=== PATIENT | female | born 1995 | race Caucasian/White ===

== ENCOUNTER 2016-09-15 14:52 | Emergency (ER) | payer MEDICAID ==
[~2016-09-15] VITALS: Ht 162.6 cm; Wt 77.1 kg
[~2016-09-15 14:52] MED LIST: ETODOLAC400 MG PO; FIORICET1 CAP PO; KEFLEX 500MG.500 MG PO; MEDROL 4MG. DOSE4 MG PO; NICOTINE T21 MG/24 H TD; PERCOCET 5/3251 EACH PO; PRENATAL1 TA2 PO; VICODIN1 TAB PO; VISTARIL50 MG PO
--- NOTE | 2016-09-15 15:20 | Emergency Room Report ---
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 N Clinical Suspician of Infection? N Mental Status: 1 - Regular (Normal Baseline) Sepsis Risk:Possible Sepsis Risk Have you (or family members/close friends) recently traveled outside the [place]? N If Yes, where/when: Have you had exposure to infectious disease within the past month? N TB? Other? Specify: Source patient, RN notes reviewed, family, RN/MD Exam Limitations no limitations Comment This is a 21-year-old female presenting to the emergency room with RIGHT hand pain following an injury today to her RIGHT fifth finger. Patient was here few days ago with another hand injury, after punching a wall and she was diagnosed with a right 5th metacarpal fracture. Today's injuries subsequent to the fracture she has sustained a few days ago. ALLERGIES Coded Allergies: tramadol (From ULTRA) (Mild, I-HIVES 09/01/16) Home Medications Active Scripts CEPHALEXIN (Keflex 500MG Capsule) 500 MG PO Q8H #30 CAP Prov: 09/02/16 HYDROCODONE/ACETAMINOPHEN (Vicodin 5-300 MG Tablet) 1 TAB PO TIDP PRN BREAKTHROUGH MODERATE PAIN #10 TAB Prov: 09/06/16 History Medical History General CAD? No Angina: No IN: No Hypertension? No Hyperlipidemia? No CHF? No DVT? No PE? No COPD? No Asthma? No Anemia? No GERD? No Gastric ulcers? No GI Bleed? No Hernia? No Thyroid Problems? No Hypothyroidism? No CVA? No Seizures? No Diabetes? No Renal Insuffiency? No End Stage Renal Disease? No UTI? No Stones? No BPH? No GB Disease: No Nephritic Syndrome? No Asplenia? No Hepatitis? No Sickle Cell Disease? No Arthritis? No Migraines? Yes Cataracts? No Glaucoma? No MRSA? No HIV? No TB? No Anxiety? No Depression? No Cancer? No More? 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 Social History Smoking Hx Smoker: Current Every Day Smoker Tobacco: Yes Type Cigarettes Packs/day < 1 Pack Alcohol Alcohol: No Review of Systems All Other Systems Reviewed and Negative Musculoskeletal joint pain Physical Exam Vital Signs Vital Signs Date Time Temp Pulse Resp B/P Pulse O2 O2 Flow FiO2 Ox Delivery Rate 09/15 1603 98.5 126 20 154/69 98 09/15 1602 98.5 126 20 154/69 98 09/15 1454 98.5 126 20 154/69 98 General Appearance normal appearance, WD/WN, no apparent distress Neck normal inspection, non-tender, supple, full range of motion Respiratory Status Yes: trachea midline, chest symmetrical, non tender chest. No: respiratory distress. Lung Sounds bilateral: normal breath sounds, lungs clear. Cardiovascular normal exam, regular rate/rhythm, no peripheral edema, no gallop, no JVD, no murmur, no rub, normal peripheral pulses Peripheral Pulses Pulses normal Yes Gastrointestinal normal bowel sounds, normal exam, non tender, soft, no organomegaly Back normal inspection, no CVA tenderness, no vertebral tenderness Extremities RIGHT hand ulnar aspect with mild soft tissue swelling, tenderness over the RIGHT fifth MCP, worse with RIGHT fifth finger range of motion. Neurologic alert, manager brand II-XII nml as tested, normal exam, oriented x 3 Mental status normal mood/affect Skin intact, normal color, warm/dry Medical Decision Making LABS/Meds/Orders Pt receiving controlled substance in ED? No Comment Patient has a previous appointment with Dr. Francois in a few days which I have encouraged her to keep. She will alternate Motrin with Tylenol for pain control, keep RIGHT hand elevated and apply ice packs. Results/Orders Orders Procedure Date/time Status HAND-RT 3 VIEWS 09/15 1509 Active XRAY/CT/US XRAY/CT/US XRAY RIGHT hand x-ray shows RIGHT fifth metacarpal neck fracture, previously seen on x-ray taken a few days ago. RIGHT fifth finger shows no acute fracture. Departure Departure Time of Disposition 1552 Disposition DC Home or Self Care(routine) Clinical Impression Primary Impression: Hand contusion Qualifiers: Encounter type: initial encounter Laterality: right Qualified Code: S60.221A - Contusion of right hand, initial encounter Secondary Impressions: Metacarpal bone fracture Qualifiers: Encounter type: initial encounter Metacarpal bone: fifth Fracture type: closed Metacarpal location: neck Fracture alignment: displaced Laterality: right Qualified Code: S62.336A - Displaced fracture of neck of fifth metacarpal bone, right hand, initial encounter for closed fracture Condition STABLE Referrals Nilay Ramos MD Patient Instructions DI for Boxer's Fracture Additional Instructions Please follow-up with Dr. Nilay Francois as previously scheduled. Discharge Counseling Counseled pt/family regarding diagnosis, test results, medications/RX, home care, follow up needs Comment Please follow-up with Dr. Nilay Francois as previously scheduled. Prescriptions Current Visit Scripts Etodolac 400 MG PO BID PRN pain #20 TAB ED Critical Care Critical Care No at 1829
[2016-09-15] MEDS ORDERED: ETODOLAC400 MG PO (15:59)
[2016-09-15 16:03] VITALS: BP 154/69
--- NOTE | 2016-09-16 15:27 | RADIOLOGY REPORT PS360 ---
HAND-RT 3 VIEWS HISTORY: Posttraumatic pain, follow-up fracture FALL COMPARISON: 09/06/2016 FINDINGS: Comminuted slightly impacted fracture involves the distal aspect of the fifth metacarpal with minimal volar angulation of the distal fracture fragment. Not significant change. No significant callus formation. IMPRESSION: No change fifth metacarpal fracture
== END 2016-09-15 16:04 | disposition home or self-care (01) ==
LOC: ER 14:52
DX: S62.306D Unspecified fracture of fifth metacarpal bone, right hand, subsequent encounter for fracture with routine healing (principal)

== ENCOUNTER → 2016-09-17 | Outpatient (CLI) | payer MEDICAID ==
--- NOTE | 2016-09-17 13:37 | RADIOLOGY REPORT PS360 ---
HAND-RT 3 VIEWS HISTORY: Follow-up fracture RT HAND PAIN COMPARISON: 09/15/2016 FINDINGS: No change comminuted boxers fracture of the distal phalanx of the fifth finger nondisplaced. No other significant anomalies. IMPRESSION:No change comminuted boxers fracture of the distal phalanx of the fifth finger nondisplaced.
== END ==
LOC: RAD 11:14
DX: M79.641 Pain in right hand (principal)